=== PATIENT | female | born 1955 | race Caucasian/White ===

== ENCOUNTER 2017-08-30 14:00 | Emergency (ER) | payer OTHER ==
[~2017-08-30] VITALS: Ht 172.7 cm; Wt 83.0 kg
[~2017-08-30 14:00] MED LIST: ENAB7.5T PO; FENO160T2 PO; LEVO.125 PO; LOPR100T PO; METO50TA PO; OMEP20CA5 PO; OXYC5 PO; SUMA100T2 PO; TRAM50 PO; XANA0.5T PO; [UNRECOGNIZED DRUG - CODE] BU
[2017-08-30 14:12] VITALS: BP 133/60; PULSE 73; RESP 16; TEMP 98.2; O2SAT 96
[2017-08-30] MEDS ORDERED: SODIUM CHLOR 0.9% 1000 ML INJ 1,000 ML IV ONE (14:25)
[2017-08-30] MEDS ORDERED: ONDANSETRON HCL 4 MG/2 ML VIAL IVP ONE (14:30)
[2017-08-30] MEDS ORDERED: SODIUM CHLORIDE 0.9% FLUSH 10 ML FLUSH IVF PRN (14:30)
--- NOTE | 2017-08-30 14:36 | PD ---
HPI Chief Complaint: General Weakness Time Seen by Provider: 14:16 Travel History International Travel<30 days: No Contact w/Intl Traveler<30days: No Traveled to known affect area: No History of Present Illness HPI The patient is a 61-year-old female who presents to the emergency department for generalized weakness and fatigue. The patient has a history of generalized weakness and fatigue since spring. The patient states she has a history of anemia, underwent workup for GI bleed. The patient states she has stool studies sent off that were positive and subsequently underwent endoscopy and colonoscopy which were negative per the patient's report. 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 The patient denies any dark colored stools or visible blood in the stools. She does complain of intermittent generalized fatigue, weakness, dizziness with exertion. The patient states she does have a history of low hemoglobin, her last hemoglobin was 8.[address] Plaza's office. Patient denies any chest pain, shortness breath, or exertional shortness of breath. The patient's primary physician is Dr. Plaza. The patient is scheduled to see fiberglass dowel drawing operator the future, however, cannot recall the name of her fiberglass dowel drawing operator. The patient's heating and blending supervisor was Dr. Juarez, per the patient's report. PFSH Past Medical History Anemia: Yes Arthritis: Yes (LEFT ARM) Anxiety: Yes Depression: Yes Heart Rhythm Problems: Yes ("MY HEART BEATS TOO FAST") High Cholesterol: Yes Chest Pain: Yes COPD: Yes Cerebrovascular Accident: Yes (TIA ) GERD: Yes Migraines: Yes Myocardial Infarction: Yes ("SILENT"?) Pneumonia: Yes Thyroid Disease: Yes (GRAVE'S DISEASE) Triglycerides - High: Yes Menopausal: Yes : 4 Para: 3 Miscarriage: 1 Ectopic : Yes (X1) Ovarian Cysts: Yes Past Surgical History Abdominal Surgery: Yes (BOWEL RESECTION WITH SURGICAL CLIPS NOV 2010, hernia repairs) Appendectomy: Yes Endocrine Surgery: Yes (TOTAL THYROIDECTOMY MAY 2012) Hysterectomy: Yes Social History Alcohol Use: Yes ("ONCE IN A GREAT WHILE") Tobacco Use: Yes (1 PPD) Substance Use: No Allergies-Medications (Allergen,Severity, Reaction): Coded Allergies: penicillin G (Unverified Allergy, Severe, ITCHY, 08/30/17) Reported Meds & Prescriptions Reported Meds & Active Scripts Active Review of Systems Except as stated in HPI: all other systems reviewed are Neg HENT: Positive: Lightheadedness Cardiovascular: No: Chest Pain or Discomfort, Dyspnea on exertion Respiratory: No: Shortness of Breath Gastrointestinal: Positive: Nausea, No: Vomiting, Abdominal Pain, Changes in Bowel Habits Genitourinary: No: Dysuria Musculoskeletal: Positive: Weakness Neurologic: Positive: Weakness, Dizziness Physical Exam Narrative GENERAL: Awake, alert, pleasant 61-year-old female who appears her stated age and is in no acute respiratory distress. SKIN: Focused skin assessment warm/dry. HEAD: Atraumatic. Normocephalic. EYES: Pupils equal and round. No scleral icterus. No injection or drainage. ENT: No nasal bleeding or discharge. Mucous membranes pink and moist. NECK: Trachea midline. No JVD. CARDIOVASCULAR: Regular rate and rhythm. No murmur appreciated. RESPIRATORY: No accessory muscle use. Clear to auscultation. Breath sounds equal bilaterally. GASTROINTESTINAL: Abdomen soft, non-tender, nondistended. Well-healed midline surgical scar. No guarding or rigidity. MUSCULOSKELETAL: No obvious deformities. No clubbing. No cyanosis. No edema. NEUROLOGICAL: Awake and alert. No obvious cranial nerve deficits. Motor grossly within normal limits. Normal speech. Nonfocal. PSYCHIATRIC: Appropriate mood and affect; insight and judgment normal. Data Data Last Documented VS Vital Signs Date Time Temp Pulse Resp B/P (MAP) Pulse Ox O2 Delivery O2 Flow Rate FiO2 08/30/17 15:12 72 15 110/58 (75) 70 16 107/62 (77) 77 16 103/57 (72) 08/30/17 15:12 93 Room Air 08/30/17 14:12 98.2 Orders Orders Electrocardiogram (08/30/17 14:25) Complete Blood Count With Diff (08/30/17 14:25) Comprehensive Metabolic Panel (08/30/17 14:25) Magnesium (Mg) (08/30/17 14:25) Urinalysis - C+S If Indicated (08/30/17 14:25) Ecg Monitoring (08/30/17 14:25) Iv Access Insert/Monitor (08/30/17 14:25) Oximetry (08/30/17 14:25) Ondansetron Inj (Zofran Inj) (08/30/17 14:30) Sodium Chloride 0.9% Flush (Ns Flush) (08/30/17 14:30) Sodium Chlor 0.9% 1000 Ml Inj (Ns 1000 M (08/30/17 14:25) Orthostatic Vital Signs (08/30/17 14:25) Thyroid Stimulating Hormone (08/30/17 14:25) Free Thyroxine (T4) (08/30/17 14:25) Free T3 (08/30/17 14:25) Labs Laboratory Tests Test 08/30/17 14:39 08/30/17 15:22 White Blood Count 6.7 TH/MM3 Red Blood Count 4.07 MIL/MM3 Hemoglobin 8.0 GM/DL Hematocrit 26.6 % Mean Corpuscular Volume 65.3 FL Mean Corpuscular Hemoglobin 19.7 PG Mean Corpuscular Hemoglobin Concent 30.2 % Red Cell Distribution Width 19.6 % Platelet Count 340 TH/MM3 Mean Platelet Volume 7.9 FL Neutrophils (%) (Auto) 58.1 % Lymphocytes (%) (Auto) 29.5 % Monocytes (%) (Auto) 8.4 % Eosinophils (%) (Auto) 3.1 % Basophils (%) (Auto) 0.9 % Neutrophils # (Auto) 3.8 TH/MM3 Lymphocytes # (Auto) 2.0 TH/MM3 Monocytes # (Auto) 0.6 TH/MM3 Eosinophils # (Auto) 0.2 TH/MM3 Basophils # (Auto) 0.1 TH/MM3 CBC Comment AUTO DIFF Differential Comment AUTO DIFF CONFIRMED Target Cells 1+ Tear Drop Cells 1+ Ovalocytes 2+ Keratocytes 1+ Blood Urea Nitrogen 16 MG/DL Creatinine 0.88 MG/DL Random Glucose 125 MG/DL Total Protein 7.2 GM/DL Albumin 3.4 GM/DL Calcium Level 8.4 MG/DL Magnesium Level 1.9 MG/DL Alkaline Phosphatase 43 U/L Aspartate Amino Transf (AST/SGOT) 21 U/L Alanine Aminotransferase (ALT/SGPT) 25 U/L Total Bilirubin 0.4 MG/DL Sodium Level 140 MEQ/L Potassium Level 4.0 MEQ/L Chloride Level 106 MEQ/L Carbon Dioxide Level 25.8 MEQ/L Anion Gap 8 MEQ/L Estimat Glomerular Filtration Rate 66 ML/MIN Thyroid Stimulating Hormone 3rd Gen 1.670 uIU/ML Urine Collection Type CLEAN CATCH Urine Color YELLOW Urine Turbidity CLEAR Urine pH 6.0 Urine Specific [place] 1.022 Urine Protein NEG mg/dL Urine Glucose (UA) NEG mg/dL Urine Ketones TRACE mg/dL Urine Occult Blood NEG Urine Nitrite NEG Urine Bilirubin NEG Urine Leukocyte Esterase NEG Urine RBC 0-3 /hpf Urine WBC 0-2 /hpf Urine Squamous Epithelial Cells 0-5 /hpf Microscopic Urinalysis Comment CULT NOT INDICATED Urine Collection Time 15:[address] [facility] Medical Decision Making Medical Screen Exam Complete: Yes Emergency Medical Condition: Yes Medical Record Reviewed: Yes Interpretation(s) EKG reveals normal sinus rhythm with a rate of 74. No ischemic changes or ectopy noted. Laboratory Tests Test 08/30/17 14:39 08/30/17 15:22 White Blood Count 6.7 TH/MM3 Red Blood Count 4.07 MIL/MM3 Hemoglobin 8.0 GM/DL Hematocrit 26.6 % Mean Corpuscular Volume 65.3 FL Mean Corpuscular Hemoglobin 19.7 PG Mean Corpuscular Hemoglobin Concent 30.2 % Red Cell Distribution Width 19.6 % Platelet Count 340 TH/MM3 Mean Platelet Volume 7.9 FL Neutrophils (%) (Auto) 58.1 % Lymphocytes (%) (Auto) 29.5 % Monocytes (%) (Auto) 8.4 % Eosinophils (%) (Auto) 3.1 % Basophils (%) (Auto) 0.9 % Neutrophils # (Auto) 3.8 TH/MM3 Lymphocytes # (Auto) 2.0 TH/MM3 Monocytes # (Auto) 0.6 TH/MM3 Eosinophils # (Auto) 0.2 TH/MM3 Basophils # (Auto) 0.1 TH/MM3 CBC Comment AUTO DIFF Differential Comment AUTO DIFF CONFIRMED Target Cells 1+ Tear Drop Cells 1+ Ovalocytes 2+ Keratocytes 1+ Blood Urea Nitrogen 16 MG/DL Creatinine 0.88 MG/DL Random Glucose 125 MG/DL Total Protein 7.2 GM/DL Albumin 3.4 GM/DL Calcium Level 8.4 MG/DL Magnesium Level 1.9 MG/DL Alkaline Phosphatase 43 U/L Aspartate Amino Transf (AST/SGOT) 21 U/L Alanine Aminotransferase (ALT/SGPT) 25 U/L Total Bilirubin 0.4 MG/DL Sodium Level 140 MEQ/L Potassium Level 4.0 MEQ/L Chloride Level 106 MEQ/L Carbon Dioxide Level 25.8 MEQ/L Anion Gap 8 MEQ/L Estimat Glomerular Filtration Rate 66 ML/MIN Thyroid Stimulating Hormone 3rd Gen 1.670 uIU/ML Urine Collection Type CLEAN CATCH Urine Color YELLOW Urine Turbidity CLEAR Urine pH 6.0 Urine Specific [place] 1.022 Urine Protein NEG mg/dL Urine Glucose (UA) NEG mg/dL Urine Ketones TRACE mg/dL Urine Occult Blood NEG Urine Nitrite NEG Urine Bilirubin NEG Urine Leukocyte Esterase NEG Urine RBC 0-3 /hpf Urine WBC 0-2 /hpf Urine Squamous Epithelial Cells 0-5 /hpf Microscopic Urinalysis Comment CULT NOT INDICATED Urine Collection Time 15:22 Differential Diagnosis Differential diagnosis includes symptomatic anemia, hypothyroidism, UTI, hyponatremia, dehydration, electrolyte abnormality, GI bleed. Narrative Course IV was established, labs are drawn and sent, and the patient was placed on cardiac telemetry monitoring and continuous pulse oximetry monitoring. EKG was ordered and interpreted. Orthostatic vital signs were obtained. UA was sent to lab. CBC and TSH/free T4/free t3 were sent to lab. The patient's TSH was normal. Sodium was normal. Patient's hemoglobin is 8.0, the patient states her last hemoglobin is 8.1. The patient is not tachycardic, heart rate was normal in the 70s. Orthostatic vital signs reveal supine 110/58 with a pulse of 72, sitting 107/62 with a pulse of 70, and standing 103/57 with a pulse of 77. The patient is light headed and dizzy with supine, sitting standing, orthostatic vital signs are unremarkable. The patient denies any acute hemorrhage, states this is a chronic medical problem which appears to wax and wane. The patient's hemoglobin is 8 with no visible active bleeding, I do not believe the patient needs an acute transfusion. The patient's UA is unremarkable. The patient has follow-up appointments with her heating and blending supervisor, fiberglass dowel drawing operator, and thyroid physician on September 06, , and . She will be provided a copy of her labs at discharge. Diagnosis Primary Impression: Generalized weakness Additional Impression: Chronic anemia Patient Instructions: General Instructions Additional Instructions: Please provide the patient a copy of her labs at discharge. Follow-up with your heating and blending supervisor, fiberglass dowel drawing operator, and thyroid physician as scheduled this month. Return if symptoms worsen or progress. Med/Other Pt SpecificInfo: No Change to Meds Disposition: 01 DISCHARGE HOME Condition: Stable Diony Young MD Aug 30, 2017 14:36
[2017-08-30] MEDS ORDERED: METO100T PO (14:41)
[2017-08-30] MEDS ORDERED: OMEP20TA93 PO (14:41)
[2017-08-30] MEDS ORDERED: METO50TA PO (14:41)
[2017-08-30] MEDS ORDERED: OXYB10TA PO (14:41)
[2017-08-30] MEDS ORDERED: LOMO2.5T PO (14:41)
[2017-08-30] MEDS ORDERED: TRAZ100T10 PO (14:50)
[2017-08-30] MEDS ORDERED: FENO160T PO (14:50)
[2017-08-30] MEDS ORDERED: IMIT100T PO (14:50)
[2017-08-30] MEDS ORDERED: OXYC15TA PO (14:50)
[2017-08-30] MEDS ORDERED: ALPR0.5T3 PO (14:50)
[2017-08-30] MEDS ORDERED: UMEC1AER INH (14:50)
[2017-08-30] MEDS ORDERED: LEVO125T4 PO (14:50)
[2017-08-30 15:06] LABS: AUTOMATED NEUTROPHIL # 3.8 TH/MM3 (1.8-7.7); BASOPHIL # 0.1 TH/MM3 (0-0.2); BASOPHIL % 0.9 % (0.0-2.0); EOSINOPHIL # 0.2 TH/MM3 (0-0.4); EOSINOPHIL % 3.1 % (0.0-4.0); HEMATOCRIT 26.6 % (35.0-46.0); LYMPH % 29.5 % (9.0-44.0); MEAN CELL VOLUME 65.3 FL (80.0-100.0); MEAN CORPUSCULAR HEMOGLOBIN 19.7 PG (27.0-34.0); MEAN CORPUSCULAR HGB CONC 30.2 % (32.0-36.0); MONO % 8.4 % (0.0-8.0); NEUT % 58.1 % (16.0-70.0); PLATELET COUNT 340 TH/MM3 (150-450); RED BLOOD COUNT 4.07 MIL/MM3 (4.00-5.30); RED CELL DISTRIBUTION WIDTH 19.6 % (11.6-17.2); WHITE BLOOD COUNT 6.7 TH/MM3 (4.0-11.0)
[2017-08-30 15:11] LABS: HEMO FLAGS AUTO DIFF
[2017-08-30 15:12] VITALS: BP_SYST 103; BP_SYST 107; BP_SYST 110; BP_DIAS 57; BP_DIAS 58; BP_DIAS 62; RESP 15; RESP 16; O2SAT 93
[2017-08-30 15:19] LABS: CHLORIDE 106 MEQ/L (98-107); SODIUM (NA) 140 MEQ/L (136-145)
[2017-08-30 15:24] LABS: ANION GAP 8 MEQ/L (5-15); BICARBONATE 25.8 MEQ/L (21.0-32.0); BLOOD UREA NITROGEN 16 MG/DL (7-18); MAGNESIUM 1.9 MG/DL (1.5-2.5)
[2017-08-30 15:26] LABS: BLOOD, URINE NEG (NEG); GLUCOSE,URINE NEG (NEG); KETONE, URINE TRACE mg/dL (NEG); NITRITE,URINE NEG (NEG)
[2017-08-30 15:27] LABS: ALT (GPT) 25 U/L (10-53); AST (GOT) 21 U/L (15-37); GLOMERULAR FILTRATION RATE 66 ML/MIN (>89)
[2017-08-30 15:29] LABS: TOTAL BILIRUBIN ADULT 0.4 MG/DL (0.2-1.0)
[2017-08-30 15:30] LABS: ALKALINE PHOSPHATASE 43 U/L (45-117)
[2017-08-30 15:31] LABS: KERATOCYTES 1+ (NORMAL); OVALOCYTES 2+ (NORMAL); TEARDROP RBCS 1+ (NORMAL)
[2017-08-30 15:32] LABS: SCAN/DIFF AUTO DIFF CONFIRMED; TARGET CELLS 1+ (NORMAL)
[2017-08-30 15:47] LABS: METHOD OF COLLECTION CLEAN CATCH; URINE COLOR YELLOW (YELLW/STRAW)
[2017-08-30 15:48] LABS: COMMENT (UR) CULT NOT INDICATED; CULTURE IF INDICATED CULT NOT INDICATED; RBC, URINE 0-3 /hpf (0-3); SQUAMOUS EPITHELIAL CELL URINE 0-5 /hpf (0-5); WBC, URINE 0-2 /hpf (0-5)
[2017-08-30 17:13] LABS: FREE T3 2.37 PG/ML (2.18-3.98); FREE T4 2.32 NG/DL (0.76-1.46)
--- NOTE | 2017-08-31 16:15 | EKG ---
Date Performed: 08/30/2017 Time Performed: 14:37:08 PTAGE: 61 years EKG: Sinus rhythm When compared to previous tracing, previous ST depression has Resolved. Clinical corrolation is [place]. NORMAL ECG PREVIOUS TRACING : 01/11/2004 19.50 DOCTOR: Atul Soto Interpretating Date/Time 08/31/2017 16:13:06
== END 2017-08-30 16:15 | disposition home or self-care (01) ==
LOC: PHED 14:00
DX: R53.1 Weakness (principal); D64.9 Anemia, unspecified; E05.00 Thyrotoxicosis with diffuse goiter without thyrotoxic crisis or storm; F17.200 Nicotine dependence, unspecified, uncomplicated
CPT/HCPCS: 80053; 81001; 83735; 84439; 84443; 84481; 85025; 93005; 96374; 99284; J2405; J7030